=== PATIENT | female | born 1995 | race Caucasian/White ===

== ENCOUNTER 2018-11-12 04:02 | Emergency (ER) | payer OTHER ==
[~2018-11-12] VITALS: Ht 157.5 cm; Wt 52.2 kg
[~2018-11-12 04:02] MED LIST: AMIT25 PO; ARIP10; ARIP15 PO; Ativan1 MG SL; CETI5 PO; CYAN1000 PO; DULO30 PO; GABA100 PO; HYDACE5 PO; HYDHCL10 PO; HYDHCL25 PO; IBUP800 PO; MULVITMINE PO; NAPR500 PO; NORT25 PO; ONDA4 PO; ORTHO MICRONO0.35 MG PO; OXYACE5T PO; RXLORA1 PO; SULTRIDS PO; TRAZ100 PO; TRAZ50 PO; Verotin-Gr Cap1 EACH PO; ZIPR60 PO; ZIPR80 PO; [UNRECOGNIZED DRUG - REMARK]; [UNRECOGNIZED DRUG - REMARK]
[2018-11-12] MEDS ORDERED: CEPH500 PO (04:25)
== END 2018-11-12 04:52 | disposition home or self-care (01) ==
LOC: ER 04:02
DX: L73.9 Follicular disorder, unspecified (principal); Z88.8 Allergy status to other drugs, medicaments and biological substances; Z88.5 Allergy status to narcotic agent; Z79.899 Other long term (current) drug therapy; F17.290 Nicotine dependence, other tobacco product, uncomplicated; F17.210 Nicotine dependence, cigarettes, uncomplicated
CPT/HCPCS: 96372; 99283-25; J1885

== ENCOUNTER 2019-02-16 14:13 | Emergency (ER) | payer OTHER ==
[~2019-02-16 14:13] MED LIST changes: +CEPH500 PO
== END 2019-02-16 15:12 | disposition left against medical advice (07) ==
LOC: ER 14:13
DX: Z53.21 Procedure and treatment not carried out due to patient leaving prior to being seen by health care provider (principal)

== ENCOUNTER 2023-09-12 19:49 | Emergency (ER) | payer OTHER ==
[~2023-09-12] VITALS: Ht 157.5 cm; Wt 61.2 kg
[2023-09-12 19:53] VITALS: BP 113/86
== END 2023-09-12 21:09 | disposition home or self-care (01) ==
LOC: ER 19:49
DX: T40.2X1A Poisoning by other opioids, accidental (unintentional), initial encounter (principal); F11.10 Opioid abuse, uncomplicated; Z88.5 Allergy status to narcotic agent; Z88.6 Allergy status to analgesic agent; Z87.891 Personal history of nicotine dependence
CPT/HCPCS: 96372; 99284-25; A9270; J1885

== ENCOUNTER 2024-01-13 10:26 | Emergency (ER) | payer OTHER ==
[~2024-01-13] VITALS: Ht 157.5 cm; Wt 59.0 kg
[2024-01-13 10:50] VITALS: BP 119/102
[2024-01-13 11:50] LABS: Source, Urine Clean Catch
[2024-01-13 11:55] LABS: Appearance, Urine Clear (Clear); Bilirubin, Urine Neg (Neg); Blood, Urine 2+ (Neg); Glucose Qualitative, Urine Neg (Neg); Ketones, Urine Neg (Neg); Leukocyte Esterase, Urine 2+ (Neg); Nitrite, Urine Neg (Neg); Protein, Urine 1+ (Neg); Specific Gravity, Urine 1.015 (1.003-1.022); Urobilinogen, Urine NORM (Normal)
[2024-01-13 12:00] LABS: Color, Urine Pale Yellow (P-Yellow)
[2024-01-13 12:01] LABS: Bacteria Few /hpf; Squamous Epithelial Cells Few /hpf (Few); Transitional Epithelial Cells Rare /hpf (0-Rare)
[2024-01-13 12:02] LABS: White Blood Cells, Urine 25-50 /hpf (0-5)
== END 2024-01-13 13:00 | disposition home or self-care (01) ==
LOC: ER 10:26
PROVIDERS: Physician Assistant
DX: N39.0 Urinary tract infection, site not specified (principal); Z88.8 Allergy status to other drugs, medicaments and biological substances; Z88.5 Allergy status to narcotic agent; Z87.891 Personal history of nicotine dependence
CPT/HCPCS: 81001; 87077; 87086; 87186; 99283

== ENCOUNTER → 2024-12-05 | Outpatient (CLI) | payer OTHER ==
[~2024-12-05] MED LIST changes: +ACYCLOVIR400 MG PO; +PROP10 PO
[2024-12-05 20:19] LABS: Bacterial Vaginosis PCR Positive (NEGATIVE); Candida Group, PCR NOT DETECTED (NOT DETECT); Candida glabrata-krusei, PCR NOT DETECTED (NOT DETECT)
== END ==
LOC: LAB 17:18 → LAB SHORT 17:18
PROVIDERS: Physician Assistant
DX: N89.8 Other specified noninflammatory disorders of vagina (principal)
CPT/HCPCS: 81515

== ENCOUNTER 2025-05-26 17:45 | Emergency (ER) | payer OTHER ==
[~2025-05-26] VITALS: Ht 162.6 cm; Wt 54.4 kg
[2025-05-26 18:04] VITALS: BP 181/114
[2025-05-26] MEDS ORDERED: IBUP600 PO (19:18)
== END 2025-05-26 19:33 | disposition home or self-care (01) ==
LOC: ER 17:45
DX: S62.660A Nondisplaced fracture of distal phalanx of right index finger, initial encounter for closed fracture (principal); S46.912A Strain of unspecified muscle, fascia and tendon at shoulder and upper arm level, left arm, initial encounter; R07.89 Other chest pain; Z87.891 Personal history of nicotine dependence; Z88.3 Allergy status to other anti-infective agents; Z88.5 Allergy status to narcotic agent; Z88.8 Allergy status to other drugs, medicaments and biological substances; Z79.899 Other long term (current) drug therapy; V89.2XXA Person injured in unspecified motor-vehicle accident, traffic, initial encounter
CPT/HCPCS: 26755; 71046; 73030; 73140; 99283-25; A9270

== ENCOUNTER 2025-06-27 17:34 | Emergency (ER) | payer OTHER ==
[~2025-06-27] VITALS: Ht 157.5 cm; Wt 59.0 kg
[~2025-06-27 17:34] MED LIST changes: +IBUP600 PO
[2025-06-27 17:50] VITALS: BP 129/83
[2025-06-27] MEDS ORDERED: PENVK500 PO (18:00)
== END 2025-06-27 18:10 | disposition home or self-care (01) ==
LOC: ER 17:34
DX: K04.7 Periapical abscess without sinus (principal); F17.200 Nicotine dependence, unspecified, uncomplicated
CPT/HCPCS: 99282